=== PATIENT | male | born 1965 | race Caucasian/White ===

== ENCOUNTER → 2020-08-08 | Outpatient (CLI) | payer OTHER ==
[~2020-08-08] MED LIST: AUGMENTIN 875-1 EACH PO
== END ==
LOC: HEART 5 14:30
DX: G62.9 Polyneuropathy, unspecified (principal)

== ENCOUNTER → 2021-04-30 | Outpatient (CLI) | payer OTHER | LOC: KOH-I 11:21 | DX: J44.9 Chronic obstructive pulmonary disease, unspecified (principal); J40 Bronchitis, not specified as acute or chronic; R05.9 Cough, unspecified; R91.8 Other nonspecific abnormal finding of lung field | CPT/HCPCS: 71046 ==

== ENCOUNTER → 2021-05-04 | Outpatient (CLI) | payer OTHER | LOC: KOH-I 08:19 | DX: R91.8 Other nonspecific abnormal finding of lung field (principal) | CPT/HCPCS: 71250 ==

== ENCOUNTER → 2021-07-19 | Outpatient (CLI) | payer OTHER | LOC: KOH-I 14:55 | DX: R22.0 Localized swelling, mass and lump, head (principal); M54.2 Cervicalgia | CPT/HCPCS: 76536 ==